=== PATIENT | female | born 1980 | race Caucasian/White ===

== ENCOUNTER → 2016-07-05 | Outpatient (CLI) | payer BC ==
[~2016-07-05] MED LIST: IBP600T1 PO; OXYC-12 PO
--- NOTE | 2016-07-05 16:14 | Diagnostic Imaging Report ---
Indication: Right knee pain 3 views of the right knee show no fracture, dislocation or pathologic effusion. Impression: Negative right knee Dictated by: Dictated on workstation # [id number]
== END ==
LOC: RAD 14:36
PROVIDERS: ATTEND Family Medicine
DX: M25.561 Pain in right knee (principal)
CPT/HCPCS: 36415; 73562; 85652; 86038

== ENCOUNTER → 2017-03-01 | Outpatient (CLI) | payer BC ==
--- NOTE | 2017-03-01 11:23 | Diagnostic Imaging Report ---
Left breast ultrasound. INDICATION: Left breast pain and lumpiness in the upper-outer region of the left breast. FINDINGS: Unremarkable breast parenchyma is seen with no focal lesion. Dr. Samayoa specifically wanted just an ultrasound done without a mammogram. If the index of suspicion is very low and symptoms resolve, this study may be sufficient. IMPRESSION: Negative study. Mammography was not performed at this time. If symptoms persist, then evaluation with mammography is recommended. ACR BI-RADS Category 1: Negative. Result letter will be mailed to the patient. Note: At least 10% of breast cancer is not imaged by mammography. Dictated by: Dictated on workstation # [id number]
== END ==
LOC: RAD 09:06
PROVIDERS: ATTEND Obstetrics & Gynecology
DX: N64.4 Mastodynia (principal)
CPT/HCPCS: 76642

== ENCOUNTER → 2020-02-26 | Outpatient (CLI) | payer BC ==
--- NOTE | 2020-02-27 09:53 | Diagnostic Imaging Report ---
INDICATION: Routine screening. COMPARISON: No prior mammograms are available for comparison. TECHNIQUE: 2D and 3D bilateral screening mammography was performed with CAD. FINDINGS: Both breasts are heterogeneously dense, limiting the sensitivity of mammography. No mass or malignant appearing microcalcifications are seen. The axillae are unremarkable. IMPRESSION: No mammographic features suspicious for malignancy are identified. ACR BI-RADS Category 1: Negative. Result letter will be mailed to the patient. Note: At least 10% of breast cancer is not imaged by mammography. Dictated by: Dictated on workstation # [id number]
== END ==
LOC: RAD 15:45
PROVIDERS: ATTEND Obstetrics & Gynecology
DX: Z12.31 Encounter for screening mammogram for malignant neoplasm of breast (principal)
CPT/HCPCS: 77063; 77067

== ENCOUNTER → 2021-07-10 | Outpatient (CLI) | payer BC ==
--- NOTE | 2021-07-10 12:05 | Diagnostic Imaging Report ---
INDICATION: Routine screening. COMPARISON is made with prior mammogram 02/26/2020. 2-D and 3-D bilateral screening mammography was performed with CAD. Both breasts are heterogeneously dense, limiting the sensitivity of mammography. The parenchymal pattern is stable. No mass or malignant-appearing microcalcifications are seen. There are occasional benign calcifications present. Axillae are unremarkable. IMPRESSION: BI-RADS Category 2 No mammographic features suspicious for malignancy are identified. ACR BI-RADS Category 2: Benign findings. Result letter will be mailed to the patient. Note: At least 10% of breast cancer is not imaged by mammography. Dictated by: Dictated on workstation # [id number]
== END ==
LOC: RAD 11:00
PROVIDERS: ATTEND Family Medicine
DX: Z12.31 Encounter for screening mammogram for malignant neoplasm of breast (principal)
CPT/HCPCS: 77063; 77067

== ENCOUNTER → 2021-12-01 | Outpatient (CLI) | payer BC ==
[2021-12-01 11:55] LABS: BASOPHILS # (AUTO) 0.1 10^3/uL (0.0-0.1); BASOPHILS % (AUTO) 1 % (0-10); EOSINOPHILS # (AUTO) 0.1 10^3/uL (0.0-0.3); EOSINOPHILS % (AUTO) 1 % (0-10); HEMATOCRIT 39 % (35-52); HEMOGLOBIN 12.6 g/dL (11.5-16.0); LYMPHOCYTES # (AUTO) 2.2 10^3/uL (1.0-4.0); LYMPHOCYTES % (AUTO) 26 % (12-44); MEAN CORPUSCULAR HEMOGLOBIN 28 pg (25-34); MEAN CORPUSCULAR HGB CONC 32 g/dL (32-36); MEAN CORPUSCULAR VOLUME 87 fL (80-99); MEAN PLATELET VOLUME 8.7 fL (9.0-12.2); MONOCYTES # (AUTO) 0.5 10^3/uL (0.0-1.0); MONOCYTES % (AUTO) 6 % (0-12); NEUTROPHILS # (AUTO) 5.5 10^3/uL (1.8-7.8); NEUTROPHILS % (AUTO) 66 % (42-75); PLATELET COUNT 404 10^3/uL (130-400); WHITE BLOOD COUNT 8.3 10^3/uL (4.3-11.0)
[2021-12-01 12:07] LABS: ALBUMIN 4.3 GM/DL (3.2-4.5); POTASSIUM 4.2 MMOL/L (3.6-5.0)
[2021-12-01 12:09] LABS: CALCIUM 9.4 MG/DL (8.5-10.1)
[2021-12-01 12:10] LABS: TOTAL PROTEIN 7.2 GM/DL (6.4-8.2)
[2021-12-01 12:11] LABS: BILIRUBIN,TOTAL 0.2 MG/DL (0.1-1.0)
[2021-12-01 12:14] LABS: CREATININE SERUM 0.84 MG/DL (0.60-1.30)
--- NOTE | 2021-12-01 13:34 | Diagnostic Imaging Report ---
PROCEDURE: US Non-ob pelvis comp/trans. TECHNIQUE: Multiple realtime grayscale images were obtained of the pelvis in various projections endovaginally. Transabdominal imaging was also performed. INDICATION: Abdominal pain. FINDINGS: The uterus measures 7 x 4.4 cm. Endometrial stripe is 7 mm. The fundus is heterogeneous with the myometrial mass measuring 1.5 cm. There are several cysts in the cervix. Right ovary measures 2 x 1.6 x 2 cm. There is a 1 cm cyst. The left ovary measures 3.4 x 1.3 x 2 cm showing several follicular cyst. There is normal blood flow to both ovaries. There is no free fluid. IMPRESSION: 1. A 1.5 cm myometrial mass likely representing fibroid. There are multiple nabothian cysts as well. 2. Bilateral follicular cysts largest cyst on the right measuring 1 cm. Dictated by: Dictated on workstation # [id number]
== END ==
LOC: RAD 10:38
PROVIDERS: ATTEND Family Medicine
DX: N83.02 Follicular cyst of left ovary (principal); N83.01 Follicular cyst of right ovary; N88.8 Other specified noninflammatory disorders of cervix uteri
CPT/HCPCS: 36415; 76830; 76856; 80053; 84703; 85025; 86141

== ENCOUNTER → 2022-07-06 | Outpatient (CLI) | payer BC ==
--- NOTE | 2022-07-06 19:35 | Diagnostic Imaging Report ---
INDICATION: Neck pain. FINDINGS: There is straightening of the normal cervical lordosis. The vertebral body heights are well-maintained. There are mild degenerative changes. There is no fracture or traumatic subluxation. The odontoid is intact and the lateral masses are well aligned. The prevertebral soft tissues are within normal limits. IMPRESSION: Mild cervical spondylosis, otherwise unremarkable. Dictated by: Dictated on workstation # [id number]
== END ==
LOC: RAD 16:00
PROVIDERS: ATTEND Family Medicine
DX: M47.812 Spondylosis without myelopathy or radiculopathy, cervical region (principal)
CPT/HCPCS: 72040

== ENCOUNTER → 2023-02-04 | Outpatient (CLI) | payer BC ==
--- NOTE | 2023-02-04 15:18 | Diagnostic Imaging Report ---
PROCEDURE: Pelvic comp/transvaginal sonogram. TECHNIQUE: Complete transabdominal and transvaginal pelvic ultrasound was performed. In addition, limited pelvic Doppler was performed. INDICATION: Abnormal uterine bleeding for one month. FINDINGS: Uterus is anteverted measuring 9.3 x 5.1 x 5.6 cm. Endometrium is 12 mm in thickness. There is some heterogeneity in the region of the fundus, similar to prior study at 14 mm. Right ovary measures 1.6 x 1.4 x 1.9 cm, and left ovary measures 4.3 x 2.3 x 2.5 cm. Left ovary does contain approximately 2 cm simple cyst. There is also a 1.9 cm hemorrhagic cyst in the left ovary. Ovaries demonstrate blood flow. No adnexal mass or free fluid is identified. There are cervical nabothian cysts present. IMPRESSION: Left-sided ovarian cysts, one of which is hemorrhagic measuring 1.9 cm. Study is otherwise unremarkable and stable when compared with exam from 12/01/2021. Dictated by: Dictated on workstation # [id number]
== END ==
LOC: RAD 11:41
PROVIDERS: ATTEND Family Medicine
DX: N83.202 Unspecified ovarian cyst, left side (principal)
CPT/HCPCS: 76830; 76856

== ENCOUNTER → 2023-04-25 | Outpatient (CLI) | payer BC ==
--- NOTE | 2023-04-25 14:27 | Diagnostic Imaging Report ---
PROCEDURE: Pelvic comp/transvaginal sonogram. TECHNIQUE: Complete transabdominal and transvaginal pelvic ultrasound was performed. In addition, limited pelvic Doppler was performed. INDICATION: Abnormal uterine bleeding. COMPARISON: Correlation is made with pelvic ultrasound from 02/04/2023. FINDINGS: Uterus is anteverted measuring 8.3 x 4.4 x 4.7 cm. There is some myometrial heterogeneity but no discrete mass. Endometrium is 8 mm in thickness. There are cervical nabothian cysts. Right ovary measures 2.3 x 1.7 x 2.3 cm, and left ovary measures 2.9 x 1.4 x 1.4 cm. Both ovaries demonstrate blood flow. No adnexal mass or free fluid is detected. IMPRESSION: Essentially unremarkable transabdominal and transvaginal pelvic ultrasound with limited pelvic Doppler. Dictated by: Dictated on workstation # [id number]
== END ==
LOC: RAD 09:24
PROVIDERS: ATTEND Obstetrics & Gynecology
DX: N93.9 Abnormal uterine and vaginal bleeding, unspecified (principal)
CPT/HCPCS: 76830; 76856